=== PATIENT | male | born 1950 | race Caucasian/White ===

== ENCOUNTER 2019-07-23 19:24 | Inpatient (IN) ==
[2019-07-23] MEDS ORDERED: HYDROmorphone 2 MG/1 ML VIAL IV STA (19:52)
[2019-07-23] MEDS ORDERED: ONDANSETRON 4 MG/2 ML VIAL IV STA (19:52)
[2019-07-23] MEDS ORDERED: DIPHTHERIA/TETANUS ADULT VACCINE 0.5 ML SYRINGE IM ONE (19:52)
[2019-07-23] MEDS ORDERED: CEFTAROLINE 600 MG in SODIUM CHLORIDE 0.9% 100 ML IV STA (20:10)
[2019-07-23 20:40] LABS: Basophils % 0.3 % (0.0-0.8); Eosinophils # 0.2 10*3/uL (0.0-0.87); Eosinophils % 1.7 % (0.00-10.9); Hematocrit 40.7 VOL% (42.0-52.0); Immature Granulocytes % 0.5 %; Immature Granulocytes Absolute 0.05 #; Lymphocytes # 0.5 10*3/uL (1.4-4.0); Lymphocytes % 4.8 % (21.2-54.2); Mean Corpuscular HGB Conc 31.9 GM/DL (32-36); Mean Corpuscular Volume 93.8 FL (87-102); Neutrophils % 84.7 % (38.7-73.9); Platelet Count 391 T/CUMM (130-400); Red Blood Count 4.34 MC/CUMM (3.8-5.5); Red Cell Distribution Width 12.5 % (9.3-17.3); White Blood Count 10.3 T/CUMM (4-12)
[2019-07-23] MEDS ORDERED: FUROSEMIDE 40 MG/4 ML VIAL IV STA (20:49)
[2019-07-23 21:06] LABS: Eosinophils 2 % (0-10); Lymphocytes 2 % (20-55); Platelet Estimate Adequate; Segmented Neutrophils 86 % (50-85); Total Cells Counted 100
[2019-07-23 21:28] LABS: Albumin 3.2 G/DL (3.4-5.0); Bilirubin,Total 0.5 MG/DL (0.2-1.0); Calcium 8.2 MG/DL (8.5-10.1); Total Protein 7.5 G/DL (6.4-8.3)
[2019-07-23 21:31] LABS: Osmolality,Calculated 262.7 MOS/KG (273-304)
[2019-07-23] MEDS ORDERED: ONDANSETRON 4 MG/2 ML VIAL IV PRN (22:32)
[2019-07-23] MEDS ORDERED: ZALEPLON 5 MG CAPSULE PO PRN (22:32)
[2019-07-23] MEDS ORDERED: PROMETHAZINE 25 MG/1 ML VIAL IM PRN (22:32)
[2019-07-23] MEDS ORDERED: NICOTINE 21 MG/24 HR PATCH TRANSDERM PRN (22:32)
[2019-07-23] MEDS ORDERED: GLUCAGON 1 MG VIAL IM PRN (22:32)
[2019-07-23] MEDS ORDERED: DOCUSATE SODIUM 100 MG CAPSULE PO PRN (22:32)
[2019-07-23] MEDS ORDERED: guaiFENesin/DM ER 600-30 MG TABLET PO PRN (22:32)
[2019-07-23] MEDS ORDERED: DEXTROSE 50% 25 GM/50 ML VIAL IV PRN (22:32)
[2019-07-23] MEDS ORDERED: traZODone 50 MG TABLET PO PRN (22:32)
[2019-07-23] MEDS ORDERED: hydrALAZINE 20 MG/1 ML VIAL IV PRN (22:32)
[2019-07-23] MEDS ORDERED: diphenhydrAMINE CAP 25 MG CAPSULE PO PRN (22:32)
[2019-07-23] MEDS ORDERED: hydrALAZINE 20 MG/1 ML VIAL IV STA (23:09)
[2019-07-24] MEDS: PIPERACILLIN/TAZOBACTAM 4,500 MG in SODIUM CHLORIDE 0.9% 100 ML IV SCH ×3 (01:25→16:21)
[2019-07-24] MEDS: MORPHINE 4 MG/1 ML VIAL IV PRN ×3 (02:19→14:46)
[2019-07-24 02:25] LABS: Apearance,Urine CLEAR (Clear); Bilirubin,Urine Negative (Negative); Blood, Urine Small mg/dL (Negative); Glucose,Urine (UA) Negative (Negative); Ketones,Urine Negative (Negative); Nitrite,Urine Negative (Negative); Protein,Urine 30 MG/DL; RBC,Urine 1 /HPF (0-4); Urine Color Colorless (Yellow); Urine Specific Gravity 1.003 (1.001-1.035); Urine Urobilinogen < 2.0 EU/DL (0.2-1.0); WBC,Urine 1 /HPF (0-6)
[2019-07-24] MEDS: VANCOMYCIN INJ 2,000 MG in SODIUM CHLORIDE 0.9% 500 ML IV SCH (05:25)
[2019-07-24 05:35] LABS: Basophils % 0.3 % (0.0-0.8); Eosinophils # 0.1 10*3/uL (0.0-0.87); Eosinophils % 1.2 % (0.00-10.9); Hematocrit 39.6 VOL% (42.0-52.0); Hemoglobin 12.5 GM/DL (14.0-18.0); Immature Granulocytes % 0.4 %; Immature Granulocytes Absolute 0.04 #; Lymphocytes # 0.6 10*3/uL (1.4-4.0); Lymphocytes % 5.2 % (21.2-54.2); Mean Corpuscular HGB Conc 31.6 GM/DL (32-36); Mean Corpuscular Volume 96.1 FL (87-102); Mean Platelet Volume 10.2 FL (9.6-12.0); Monocytes % 11.1 % (1.7-12.7); Neutrophils % 81.8 % (38.7-73.9); Platelet Count 270 T/CUMM (130-400); Red Blood Count 4.12 MC/CUMM (3.8-5.5); Red Cell Distribution Width 12.6 % (9.3-17.3); White Blood Count 11.3 T/CUMM (4-12)
[2019-07-24 06:33] LABS: Albumin 2.7 G/DL (3.4-5.0); Bilirubin,Total 0.6 MG/DL (0.2-1.0); Calcium 8.1 MG/DL (8.5-10.1); Osmolality,Calculated 269.1 MOS/KG (273-304); Total Protein 6.8 G/DL (6.4-8.3)
[2019-07-24] MEDS: INSULIN LISPRO 100 UNIT/ML SUBCUT SCH ×4 (09:00→21:24)
[2019-07-24] MEDS: chlordiazePOXIDE 10 MG CAPSULE PO SCH ×3 (09:32→21:34)
[2019-07-24] MEDS: THIAMINE 100 MG TABLET PO SCH (09:32)
[2019-07-24] MEDS: MULTIVITAMIN (CENTRUM) TABLET PO SCH (09:33)
[2019-07-24] MEDS: ACETAMINOPHEN 325 MG TABLET PO PRN ×2 (09:33→13:49)
[2019-07-24] MEDS: FOLIC ACID 1 MG TABLET PO SCH (09:33)
[2019-07-24] MEDS: PANTOPRAZOLE 40 MG TABLET PO SCH (09:33)
[2019-07-24] MEDS: ENOXAPARIN 40 MG/0.4 ML SYRINGE SUBCUT SCH (09:34)
[2019-07-24] MEDS: FUROSEMIDE 40 MG/4 ML VIAL IV SCH ×2 (10:09→16:21)
[2019-07-25] MEDS: VANCOMYCIN INJ 2,000 MG in SODIUM CHLORIDE 0.9% 500 ML IV SCH ×2 (04:21→14:50)
[2019-07-25 05:54] LABS: Calcium 8.2 MG/DL (8.5-10.1)
[2019-07-25] MEDS: INSULIN LISPRO 100 UNIT/ML SUBCUT SCH ×4 (07:26→20:11)
[2019-07-25] MEDS: THIAMINE 100 MG TABLET PO SCH (09:06)
[2019-07-25] MEDS: MULTIVITAMIN (CENTRUM) TABLET PO SCH (09:06)
[2019-07-25] MEDS: PANTOPRAZOLE 40 MG TABLET PO SCH (09:06)
[2019-07-25] MEDS: FOLIC ACID 1 MG TABLET PO SCH (09:07)
[2019-07-25] MEDS: PIPERACILLIN/TAZOBACTAM 4,500 MG in SODIUM CHLORIDE 0.9% 100 ML IV SCH ×4 (09:07→23:22)
[2019-07-25] MEDS: ENOXAPARIN 40 MG/0.4 ML SYRINGE SUBCUT SCH (09:07)
[2019-07-25] MEDS: chlordiazePOXIDE 10 MG CAPSULE PO SCH ×3 (09:07→20:06)
[2019-07-25] MEDS: FUROSEMIDE 40 MG/4 ML VIAL IV SCH ×2 (09:08→17:01)
[2019-07-25] MEDS: LOSARTAN 50 MG TABLET PO SCH (11:54)
[2019-07-25] MEDS ORDERED: DEXTROSE 50% 25 GM/50 ML VIAL IV PRN (14:36)
[2019-07-25] MEDS ORDERED: GLUCAGON 1 MG VIAL IM PRN (14:36)
[2019-07-25] MEDS: ACETAMINOPHEN 325 MG TABLET PO PRN (20:06)
[2019-07-26] MEDS: VANCOMYCIN INJ 2,000 MG in SODIUM CHLORIDE 0.9% 500 ML IV SCH (03:35)
[2019-07-26] MEDS ORDERED: VANCOMYCIN INJ 2,000 MG in SODIUM CHLORIDE 0.9% 500 ML IV SCH (09:00)
[2019-07-26] MEDS: INSULIN LISPRO 100 UNIT/ML SUBCUT SCH ×4 (10:13→22:40)
[2019-07-26] MEDS: THIAMINE 100 MG TABLET PO SCH (10:13)
[2019-07-26] MEDS: FOLIC ACID 1 MG TABLET PO SCH (10:13)
[2019-07-26] MEDS: chlordiazePOXIDE 10 MG CAPSULE PO SCH ×3 (10:13→20:24)
[2019-07-26] MEDS: MULTIVITAMIN (CENTRUM) TABLET PO SCH (10:13)
[2019-07-26] MEDS: PANTOPRAZOLE 40 MG TABLET PO SCH (10:14)
[2019-07-26] MEDS: LOSARTAN 50 MG TABLET PO SCH (10:14)
[2019-07-26] MEDS: FUROSEMIDE 40 MG/4 ML VIAL IV SCH ×2 (10:14→18:46)
[2019-07-26] MEDS: ENOXAPARIN 40 MG/0.4 ML SYRINGE SUBCUT SCH (10:15)
[2019-07-26] MEDS: ACETAMINOPHEN 325 MG TABLET PO PRN (11:04)
[2019-07-26] MEDS: PIPERACILLIN/TAZOBACTAM 4,500 MG in SODIUM CHLORIDE 0.9% 100 ML IV SCH ×2 (11:15→18:45)
[2019-07-26 13:43] LABS: Basophils % 0.3 % (0.0-0.8); Eosinophils # 0.5 10*3/uL (0.0-0.87); Eosinophils % 4.5 % (0.00-10.9); Hematocrit 37.4 VOL% (42.0-52.0); Hemoglobin 11.8 GM/DL (14.0-18.0); Immature Granulocytes % 0.3 %; Immature Granulocytes Absolute 0.03 #; Lymphocytes # 0.6 10*3/uL (1.4-4.0); Mean Corpuscular HGB Conc 31.6 GM/DL (32-36); Mean Corpuscular Volume 94.4 FL (87-102); Mean Platelet Volume 8.9 FL (9.6-12.0); Monocytes % 8.5 % (1.7-12.7); Neutrophils % 80.4 % (38.7-73.9); Platelet Count 380 T/CUMM (130-400); Red Blood Count 3.96 MC/CUMM (3.8-5.5); Red Cell Distribution Width 12.8 % (9.3-17.3); White Blood Count 10.1 T/CUMM (4-12)
[2019-07-26 14:08] LABS: Calcium 8.3 MG/DL (8.5-10.1); Osmolality,Calculated 274.1 MOS/KG (273-304)
[2019-07-27] MEDS: PIPERACILLIN/TAZOBACTAM 4,500 MG in SODIUM CHLORIDE 0.9% 100 ML IV SCH ×2 (01:08→12:44)
[2019-07-27 05:15] LABS: Basophils % 0.2 % (0.0-0.8); Eosinophils # 0.5 10*3/uL (0.0-0.87); Hemoglobin 11.9 GM/DL (14.0-18.0); Immature Granulocytes % 0.2 %; Immature Granulocytes Absolute 0.02 #; Lymphocytes # 0.7 10*3/uL (1.4-4.0); Mean Corpuscular HGB Conc 32.2 GM/DL (32-36); Mean Corpuscular Volume 91.8 FL (87-102); Mean Platelet Volume 9.4 FL (9.6-12.0); Monocytes % 8.4 % (1.7-12.7); Neutrophils % 79.2 % (38.7-73.9); Platelet Count 425 T/CUMM (130-400); Red Blood Count 4.03 MC/CUMM (3.8-5.5); Red Cell Distribution Width 12.7 % (9.3-17.3); White Blood Count 9.4 T/CUMM (4-12)
[2019-07-27 05:43] LABS: Calcium 8.7 MG/DL (8.5-10.1); Osmolality,Calculated 274.8 MOS/KG (273-304)
[2019-07-27] MEDS: INSULIN LISPRO 100 UNIT/ML SUBCUT SCH ×2 (10:26→12:44)
[2019-07-27] MEDS: PANTOPRAZOLE 40 MG TABLET PO SCH (10:27)
[2019-07-27] MEDS: LOSARTAN 50 MG TABLET PO SCH (10:27)
[2019-07-27] MEDS: ENOXAPARIN 40 MG/0.4 ML SYRINGE SUBCUT SCH (10:27)
[2019-07-27] MEDS: THIAMINE 100 MG TABLET PO SCH (10:27)
[2019-07-27] MEDS: chlordiazePOXIDE 10 MG CAPSULE PO SCH (10:27)
[2019-07-27] MEDS: FOLIC ACID 1 MG TABLET PO SCH (10:27)
[2019-07-27] MEDS: MULTIVITAMIN (CENTRUM) TABLET PO SCH (10:28)
[2019-07-27 12:13] VITALS: BP 176/63
[2019-07-27] MEDS: FUROSEMIDE 40 MG/4 ML VIAL IV SCH (12:43)
== END 2019-07-27 13:46 | disposition home health service (06) | DRG 603 ==
LOC: N.ED 19:24 → SUATTDRO 22:32 → N.EDINP 22:32 → N.3E 23:47
PROVIDERS: ADMIT Internal Medicine; ATTEND Family Medicine